=== PATIENT | male | born 1940 | race Caucasian/White ===

== ENCOUNTER 2022-11-02 20:15 | Inpatient (IN) | payer OTHER, SELFPAY ==
[2022-11-02] MEDS: traZODone HCL 50 MG TABLET PO (21:48)
[2022-11-02] MEDS: Mirtazapine 7.5 MG TABLET PO (21:49)
[2022-11-02] MEDS: Melatonin 3 MG TABLET PO (21:49)
[2022-11-02] MEDS: risperiDONE 0.25 MG TABLET PO (21:49)
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
[2022-11-02 23:25] VITALS: BP 148/79; PULSE 78; RESP 17; TEMP 36.8; O2SAT 99
[2022-11-03 07:30] VITALS: BP 177/80; PULSE 89; RESP 18; TEMP 36.3; O2SAT 95
[2022-11-03 08:46] LABS: Estimated Average Glucose 123 mg/dL; Hemoglobin A1C 140.4859 umol/L; Hemoglobin A1c % 5.9 %
[2022-11-03 08:50] LABS: Cholesterol 235 mg/dL; Estimated Glomerular Filt Rate 25; HDL Cholesterol 77 mg/dL; LDL Cholesterol Calculated 147 mg/dl; Magnesium 2.5 mg/dL (1.6-2.6); Triglycerides 58 mg/dL
[2022-11-03] MEDS: Cyanocobalamin (Vitamin B-12) 1,000 MCG TABLET 1000 MCG PO (08:54)
[2022-11-03] MEDS: Apixaban 5 MG TABLET PO (08:54)
[2022-11-03] MEDS: risperiDONE 0.25 MG TABLET PO ×2 (08:54→19:57)
[2022-11-03] MEDS: Cholecalciferol (Vitamin D3) 25 MCG TABLET PO (08:54)
[2022-11-03] MEDS: amLODIPine Besylate 5 MG TABLET PO (08:55)
[2022-11-03] MEDS: Sennosides/Docusate Sodium TABLET 1 TAB PO (08:55)
[2022-11-03 09:53] LABS: Folate 12.2 ng/mL (> or = 4.0); Free T4 (Free Thyroxine) 1.01 ng/dL (0.71-1.85); Thyroid Stimulating Hormone 2.73 uIU/mL (0.32-4.0); Vitamin B12 > 2000 pg/mL (200-900)
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
[2022-11-03 11:40] VITALS: BMI 24.8
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
--- NOTE | 2022-11-03 16:29 | PC.NURSE ---
Patient evaluated 24 hour post admission. Found to be ambulating with steady gait and good balance/safety awareness. Patient able to be on 15 minute checks and no bed alarm.
--- NOTE | 2022-11-03 16:31 | PC.NURSE ---
Patient now 12b per provider.
[2022-11-03 18:00] VITALS: BP 136/67; PULSE 78; RESP 16; TEMP 35.7; O2SAT 98
[2022-11-03] MEDS: Apixaban 2.5 MG TABLET PO (19:57)
[2022-11-03] MEDS: Melatonin 3 MG TABLET PO (19:57)
[2022-11-03] MEDS: Divalproex Sodium Sprinkles 125 MG CAP.DR.SPR PO (19:57)
[2022-11-03] MEDS: Mirtazapine 7.5 MG TABLET PO (19:57)
[2022-11-03] MEDS: Latanoprost 0.005 % Ophth Sol 2.5 ML DROPS 1 DROP EYE-BOTH (19:58)
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
[2022-11-04 07:30] VITALS: BP 143/90; PULSE 84; RESP 20; TEMP 36.3; O2SAT 96
[2022-11-04] MEDS: Divalproex Sodium Sprinkles 125 MG CAP.DR.SPR PO ×2 (08:14→20:48)
[2022-11-04] MEDS: Apixaban 2.5 MG TABLET PO ×2 (08:14→20:48)
[2022-11-04] MEDS: Cyanocobalamin (Vitamin B-12) 1,000 MCG TABLET 1000 MCG PO (08:14)
[2022-11-04] MEDS: Cholecalciferol (Vitamin D3) 25 MCG TABLET PO (08:14)
[2022-11-04] MEDS: risperiDONE 0.25 MG TABLET PO ×2 (08:14→20:48)
[2022-11-04] MEDS: Sennosides/Docusate Sodium TABLET 1 TAB PO (08:14)
[2022-11-04] MEDS: amLODIPine Besylate 5 MG TABLET PO (08:15)
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
[2022-11-04 18:00] VITALS: BP 159/62; PULSE 84; RESP 17; TEMP 36.3; O2SAT 99
[2022-11-04] MEDS: Melatonin 3 MG TABLET PO (20:48)
[2022-11-04] MEDS: Mirtazapine 7.5 MG TABLET PO (20:48)
[2022-11-04] MEDS: Latanoprost 0.005 % Ophth Sol 2.5 ML DROPS 1 DROP EYE-BOTH (20:49)
[2022-11-05 06:00] VITALS: BP 142/83; PULSE 105; RESP 18; TEMP 36.8; O2SAT 98
[2022-11-05] MEDS: Cyanocobalamin (Vitamin B-12) 1,000 MCG TABLET 1000 MCG PO (10:50)
[2022-11-05] MEDS: amLODIPine Besylate 5 MG TABLET PO (10:50)
[2022-11-05] MEDS: Sennosides/Docusate Sodium TABLET 1 TAB PO (10:50)
[2022-11-05] MEDS: Divalproex Sodium Sprinkles 125 MG CAP.DR.SPR PO ×2 (10:50→19:51)
[2022-11-05] MEDS: risperiDONE 0.25 MG TABLET PO ×2 (10:50→19:51)
[2022-11-05] MEDS: Cholecalciferol (Vitamin D3) 25 MCG TABLET PO (10:50)
[2022-11-05] MEDS: Apixaban 2.5 MG TABLET PO ×2 (10:50→19:50)
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
[2022-11-05 18:00] VITALS: BP 162/86; PULSE 80; RESP 18; TEMP 36.1; O2SAT 100
[2022-11-05] MEDS: Melatonin 3 MG TABLET PO (19:51)
[2022-11-05] MEDS: traZODone HCL 50 MG TABLET PO (19:51)
[2022-11-05] MEDS: Mirtazapine 7.5 MG TABLET PO (19:52)
[2022-11-05] MEDS: Latanoprost 0.005 % Ophth Sol 2.5 ML DROPS 1 DROP EYE-BOTH (19:54)
[2022-11-06 08:00] VITALS: BP 145/80; PULSE 100; RESP 16; TEMP 36.7; O2SAT 100
[2022-11-06] MEDS: Cyanocobalamin (Vitamin B-12) 1,000 MCG TABLET 1000 MCG PO (08:49)
[2022-11-06] MEDS: Cholecalciferol (Vitamin D3) 25 MCG TABLET PO (08:49)
[2022-11-06] MEDS: Divalproex Sodium Sprinkles 125 MG CAP.DR.SPR PO ×2 (08:49→20:35)
[2022-11-06] MEDS: Apixaban 2.5 MG TABLET PO ×2 (08:50→20:35)
[2022-11-06] MEDS: risperiDONE 0.25 MG TABLET PO (08:50)
[2022-11-06] MEDS: Sennosides/Docusate Sodium TABLET 1 TAB PO (08:50)
[2022-11-06] MEDS: amLODIPine Besylate 5 MG TABLET PO (08:50)
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
[2022-11-06] MEDS: risperiDONE 0.25 MG TABLET 0.5 MG PO (17:03)
[2022-11-06 18:00] VITALS: BP 167/64; PULSE 99; RESP 17; TEMP 36.1; O2SAT 98
[2022-11-06] MEDS: Milk of Magnesia 30 ML ORAL.SUSP PO (20:35)
[2022-11-06] MEDS: traZODone HCL 50 MG TABLET PO (20:35)
[2022-11-06] MEDS: Melatonin 3 MG TABLET PO (20:35)
[2022-11-06] MEDS: Mirtazapine 7.5 MG TABLET PO (20:35)
[2022-11-07 07:30] VITALS: BP 144/86; PULSE 83; RESP 16; TEMP 36.3; O2SAT 99
[2022-11-07] MEDS: amLODIPine Besylate 5 MG TABLET PO (08:13)
[2022-11-07] MEDS: Cholecalciferol (Vitamin D3) 25 MCG TABLET PO (08:14)
[2022-11-07] MEDS: Sennosides/Docusate Sodium TABLET 1 TAB PO ×2 (08:14→20:46)
[2022-11-07] MEDS: Divalproex Sodium Sprinkles 125 MG CAP.DR.SPR PO ×2 (08:14→20:46)
[2022-11-07] MEDS: Cyanocobalamin (Vitamin B-12) 1,000 MCG TABLET 1000 MCG PO (08:14)
[2022-11-07] MEDS: Apixaban 2.5 MG TABLET PO ×2 (08:14→20:46)
[2022-11-07] MEDS: risperiDONE 0.25 MG TABLET 0.5 MG PO ×2 (08:14→16:26)
[2022-11-07 08:21] LABS: Basophils Percent Auto 0.4 % (0-2); Eosinophils Absolute Auto 0.3 X10*3/uL (0.0-0.4); Eosinophils Percent Auto 6.3 % (0-4); Hematocrit 43.8 % (42.0-52.0); Hemoglobin 13.9 g/dl (14.0-18.0); Imm Gran Abs Auto 0.01 X10*3/uL (0.00-0.03); Imm Gran Pct Auto 0.2 % (0.0-0.4); Lymphocytes Absolute Auto 1.1 X10*3/uL (1.2-4.9); Lymphocytes Percent Auto 22.1 % (20-40); MANUAL DIFF FLAG SCAN; Mean Corpuscular HGB Conc 31.7 g/dl (31.0-36.0); Mean Corpuscular Hemoglobin 29.2 pg (27.0-33.0); Monocytes Absolute Auto 0.5 X10*3/uL (0.1-1.2); Monocytes Percent Auto 9.4 % (2-11); Neutrophils Percent Auto 61.6 % (45-73); PLT CLUMP 1; Red Blood Count 4.76 X10*6/uL (4.60-5.80); Red Cell Distribution Width 14.1 % (11.0-16.0); SCAN SMEAR FLAG 1
[2022-11-07 08:22] LABS: White Blood Count 4.9 X10*3/uL (4.8-10.8)
[2022-11-07 08:53] LABS: Platelet Count 142 X10*3/uL (160-400)
[2022-11-07 08:54] LABS: Anion Gap 17 (12-20); Blood Urea Nitrogen 39 mg/dL (9-16); Calcium 8.8 mg/dL (8.4-10.2); Carbon Dioxide 16 mmol/L (22-29); Chloride 113 mmol/L (96-108); Estimated Glomerular Filt Rate 26; Glucose Random 107 mg/dL (60-115); Potassium 4.7 mmol/L (3.3-5.1); SLIDE REVIEW VERIFIED; Sodium 141 mmol/L (135-145)
[2022-11-07 09:03] LABS: Thyroid Stimulating Hormone 1.79 uIU/mL (0.32-4.0)
[2022-11-07 09:06] LABS: Ammonia 38 umol/L (13-55)
[2022-11-07] MEDS: Milk of Magnesia 30 ML ORAL.SUSP PO (11:26)
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
[2022-11-07 18:00] VITALS: BP 154/84; PULSE 105; RESP 18; TEMP 36; O2SAT 99
[2022-11-07] MEDS: traZODone HCL 50 MG TABLET PO (20:46)
[2022-11-07] MEDS: Melatonin 3 MG TABLET PO (20:46)
[2022-11-07] MEDS: Mirtazapine 7.5 MG TABLET PO (20:46)
[2022-11-08] MEDS: Divalproex Sodium Sprinkles 125 MG CAP.DR.SPR PO ×2 (09:33→20:37)
[2022-11-08] MEDS: Cyanocobalamin (Vitamin B-12) 1,000 MCG TABLET 1000 MCG PO (09:33)
[2022-11-08] MEDS: Apixaban 2.5 MG TABLET PO ×2 (09:33→20:37)
[2022-11-08] MEDS: Cholecalciferol (Vitamin D3) 25 MCG TABLET PO (09:33)
[2022-11-08] MEDS: amLODIPine Besylate 5 MG TABLET PO (09:33)
[2022-11-08] MEDS: risperiDONE 0.5 MG TABLET PO ×2 (09:34→16:41)
[2022-11-08 09:41] VITALS: BP 157/90; PULSE 87; RESP 18; TEMP 36.2; O2SAT 98
[2022-11-08 14:18] VITALS: BMI 25.1
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
[2022-11-08 18:00] VITALS: BP 170/80; PULSE 110; RESP 17; TEMP 36.2; O2SAT 98
[2022-11-08] MEDS: traZODone HCL 50 MG TABLET PO (20:37)
[2022-11-08] MEDS: Melatonin 3 MG TABLET PO (20:37)
[2022-11-08] MEDS: Mirtazapine 7.5 MG TABLET PO (20:37)
[2022-11-08] MEDS: Latanoprost 0.005 % Ophth Sol 2.5 ML DROPS 1 DROP EYE-BOTH (20:39)
[2022-11-09 08:15] VITALS: BP 157/84; PULSE 77; RESP 16; TEMP 36.6; O2SAT 98
[2022-11-09] MEDS: risperiDONE 0.5 MG TABLET PO ×2 (08:29→17:16)
[2022-11-09] MEDS: amLODIPine Besylate 5 MG TABLET PO (08:29)
[2022-11-09] MEDS: Cholecalciferol (Vitamin D3) 25 MCG TABLET PO (08:30)
[2022-11-09] MEDS: Cyanocobalamin (Vitamin B-12) 1,000 MCG TABLET 1000 MCG PO (08:30)
[2022-11-09] MEDS: Divalproex Sodium Sprinkles 125 MG CAP.DR.SPR PO ×2 (08:30→19:54)
[2022-11-09] MEDS: Apixaban 2.5 MG TABLET PO ×2 (08:31→19:54)
[2022-11-09] MEDS: Sennosides/Docusate Sodium TABLET 1 TAB PO (08:31)
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
[2022-11-09 18:00] VITALS: BP 154/82; PULSE 100; RESP 18; TEMP 36.3; O2SAT 98
[2022-11-09] MEDS: Mirtazapine 7.5 MG TABLET PO (19:53)
[2022-11-09] MEDS: Melatonin 3 MG TABLET PO (19:54)
[2022-11-09] MEDS: Latanoprost 0.005 % Ophth Sol 2.5 ML DROPS 1 DROP EYE-BOTH (19:55)
[2022-11-10] MEDS: risperiDONE 0.5 MG TABLET PO ×2 (10:06→16:35)
[2022-11-10] MEDS: Cholecalciferol (Vitamin D3) 25 MCG TABLET PO (10:06)
[2022-11-10] MEDS: Divalproex Sodium Sprinkles 125 MG CAP.DR.SPR PO ×2 (10:06→19:48)
[2022-11-10] MEDS: Cyanocobalamin (Vitamin B-12) 1,000 MCG TABLET 1000 MCG PO (10:07)
[2022-11-10] MEDS: Sennosides/Docusate Sodium TABLET 1 TAB PO (10:07)
[2022-11-10] MEDS: amLODIPine Besylate 5 MG TABLET PO (10:07)
[2022-11-10] MEDS: Apixaban 2.5 MG TABLET PO ×2 (10:07→19:50)
[2022-11-10 10:09] VITALS: BP 145/85; PULSE 88; RESP 18; TEMP 36.4; O2SAT 96
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
[2022-11-10 18:00] VITALS: BP 157/91; PULSE 86; RESP 18; TEMP 36.4; O2SAT 98
[2022-11-10] MEDS: Mirtazapine 7.5 MG TABLET PO (19:49)
[2022-11-10] MEDS: traZODone HCL 50 MG TABLET PO (19:50)
[2022-11-10] MEDS: Melatonin 3 MG TABLET PO (19:50)
[2022-11-10] MEDS: Latanoprost 0.005 % Ophth Sol 2.5 ML DROPS 1 DROP EYE-BOTH (19:52)
[2022-11-11 06:00] VITALS: BP 150/78; PULSE 78; TEMP 36.7; O2SAT 98
[2022-11-11] MEDS: Cholecalciferol (Vitamin D3) 25 MCG TABLET PO (08:36)
[2022-11-11] MEDS: risperiDONE 0.5 MG TABLET PO ×2 (08:36→17:03)
[2022-11-11] MEDS: Sennosides/Docusate Sodium TABLET 1 TAB PO (08:36)
[2022-11-11] MEDS: amLODIPine Besylate 5 MG TABLET PO (08:36)
[2022-11-11] MEDS: Divalproex Sodium Sprinkles 125 MG CAP.DR.SPR PO ×2 (08:36→21:00)
[2022-11-11] MEDS: Apixaban 2.5 MG TABLET PO ×2 (08:37→21:00)
[2022-11-11] MEDS: Cyanocobalamin (Vitamin B-12) 1,000 MCG TABLET 1000 MCG PO (08:37)
[2022-11-11 18:00] VITALS: BP 157/84; PULSE 89; RESP 18; TEMP 36.7; O2SAT 98
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
[2022-11-11] MEDS: Latanoprost 0.005 % Ophth Sol 2.5 ML DROPS 1 DROP EYE-BOTH (20:59)
[2022-11-11] MEDS: Melatonin 3 MG TABLET PO (21:00)
[2022-11-11] MEDS: Mirtazapine 7.5 MG TABLET PO (21:00)
[2022-11-12 10:40] VITALS: BP 143/84; PULSE 86; RESP 18; TEMP 36.3; O2SAT 99
[2022-11-12] MEDS: Apixaban 2.5 MG TABLET PO ×2 (10:45→20:13)
[2022-11-12] MEDS: Cholecalciferol (Vitamin D3) 25 MCG TABLET PO (10:46)
[2022-11-12] MEDS: Divalproex Sodium Sprinkles 125 MG CAP.DR.SPR PO ×2 (10:46→20:13)
[2022-11-12] MEDS: amLODIPine Besylate 5 MG TABLET PO (10:46)
[2022-11-12] MEDS: Cyanocobalamin (Vitamin B-12) 1,000 MCG TABLET 1000 MCG PO (10:46)
[2022-11-12] MEDS: risperiDONE 0.5 MG TABLET PO ×2 (10:47→17:08)
[2022-11-12] MEDS: Sennosides/Docusate Sodium TABLET 1 TAB PO (10:47)
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
[2022-11-12 19:57] VITALS: BP 156/89; PULSE 79; RESP 18; TEMP 36; O2SAT 97
[2022-11-12] MEDS: Melatonin 3 MG TABLET PO (20:13)
[2022-11-12] MEDS: Mirtazapine 7.5 MG TABLET PO (20:13)
[2022-11-12] MEDS: Latanoprost 0.005 % Ophth Sol 2.5 ML DROPS 1 DROP EYE-BOTH (20:13)
[2022-11-13 06:00] VITALS: BP 153/83; PULSE 86; RESP 16; TEMP 36.2; O2SAT 97
[2022-11-13] MEDS: Cholecalciferol (Vitamin D3) 25 MCG TABLET PO (08:08)
[2022-11-13] MEDS: Divalproex Sodium Sprinkles 125 MG CAP.DR.SPR PO ×2 (08:08→22:08)
[2022-11-13] MEDS: amLODIPine Besylate 5 MG TABLET PO (08:08)
[2022-11-13] MEDS: Sennosides/Docusate Sodium TABLET 1 TAB PO (08:09)
[2022-11-13] MEDS: risperiDONE 0.5 MG TABLET PO ×2 (08:09→17:36)
[2022-11-13] MEDS: Apixaban 2.5 MG TABLET PO ×2 (08:09→20:34)
[2022-11-13] MEDS: Cyanocobalamin (Vitamin B-12) 1,000 MCG TABLET 1000 MCG PO (08:09)
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
[2022-11-13 18:00] VITALS: BP 153/87; PULSE 74; RESP 16; TEMP 36.9; O2SAT 98
[2022-11-13] MEDS: Melatonin 3 MG TABLET PO (20:33)
[2022-11-13] MEDS: Latanoprost 0.005 % Ophth Sol 2.5 ML DROPS 1 DROP EYE-BOTH (20:33)
[2022-11-13] MEDS: Mirtazapine 7.5 MG TABLET PO (20:34)
[2022-11-13] MEDS: Mineral Oil/Petrolatum,White 106 GM Tube 1 APPL TOPICAL (20:36)
[2022-11-14 06:00] VITALS: BP 153/97; PULSE 84; RESP 16; TEMP 36.1; O2SAT 100
[2022-11-14] MEDS: Cholecalciferol (Vitamin D3) 25 MCG TABLET PO (08:50)
[2022-11-14] MEDS: Sennosides/Docusate Sodium TABLET 1 TAB PO (08:50)
[2022-11-14] MEDS: Divalproex Sodium Sprinkles 125 MG CAP.DR.SPR PO ×2 (08:50→20:48)
[2022-11-14] MEDS: risperiDONE 0.5 MG TABLET PO ×2 (08:50→17:07)
[2022-11-14] MEDS: Cyanocobalamin (Vitamin B-12) 1,000 MCG TABLET 1000 MCG PO (08:50)
[2022-11-14] MEDS: Mineral Oil/Petrolatum,White 106 GM Tube 1 APPL TOPICAL (08:51)
[2022-11-14] MEDS: Apixaban 2.5 MG TABLET PO ×2 (08:51→20:49)
[2022-11-14] MEDS: amLODIPine Besylate 5 MG TABLET PO (08:51)
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
[2022-11-14 18:00] VITALS: BP 156/90; PULSE 84; RESP 14; TEMP 35.9; O2SAT 99
[2022-11-14] MEDS: Melatonin 3 MG TABLET PO (20:48)
[2022-11-14] MEDS: Mirtazapine 7.5 MG TABLET PO (20:49)
[2022-11-14] MEDS: Latanoprost 0.005 % Ophth Sol 2.5 ML DROPS 1 DROP EYE-BOTH (20:53)
[2022-11-15 06:00] VITALS: BP 132/74; PULSE 95; RESP 16; TEMP 36.2; O2SAT 99
[2022-11-15 07:00] VITALS: BMI 25.5
[2022-11-15] MEDS: Cyanocobalamin (Vitamin B-12) 1,000 MCG TABLET 1000 MCG PO (08:41)
[2022-11-15] MEDS: risperiDONE 0.5 MG TABLET PO ×2 (08:41→17:01)
[2022-11-15] MEDS: Cholecalciferol (Vitamin D3) 25 MCG TABLET PO (08:41)
[2022-11-15] MEDS: Sennosides/Docusate Sodium TABLET 1 TAB PO (08:41)
[2022-11-15] MEDS: amLODIPine Besylate 5 MG TABLET PO (08:41)
[2022-11-15] MEDS: Divalproex Sodium Sprinkles 125 MG CAP.DR.SPR PO ×2 (08:41→20:15)
[2022-11-15] MEDS: Mineral Oil/Petrolatum,White 106 GM Tube 1 APPL TOPICAL (08:41)
[2022-11-15] MEDS: Apixaban 2.5 MG TABLET PO ×2 (08:41→20:15)
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
[2022-11-15 16:34] VITALS: BP 158/86; PULSE 76; RESP 16; TEMP 36.2; O2SAT 97
[2022-11-15] MEDS: Mirtazapine 7.5 MG TABLET PO (20:15)
[2022-11-15] MEDS: Melatonin 3 MG TABLET PO (20:15)
[2022-11-15] MEDS: Latanoprost 0.005 % Ophth Sol 2.5 ML DROPS 1 DROP EYE-BOTH (20:16)
[2022-11-16 06:00] VITALS: BP 163/91; PULSE 73; RESP 18; TEMP 36.8; O2SAT 96
[2022-11-16] MEDS: Cyanocobalamin (Vitamin B-12) 1,000 MCG TABLET 1000 MCG PO (09:51)
[2022-11-16] MEDS: amLODIPine Besylate 5 MG TABLET PO (09:51)
[2022-11-16] MEDS: risperiDONE 0.5 MG TABLET PO ×2 (09:52→16:02)
[2022-11-16] MEDS: Apixaban 2.5 MG TABLET PO ×2 (09:52→20:20)
[2022-11-16] MEDS: Divalproex Sodium Sprinkles 125 MG CAP.DR.SPR PO ×2 (09:52→20:20)
[2022-11-16] MEDS: Sennosides/Docusate Sodium TABLET 1 TAB PO (09:52)
[2022-11-16] MEDS: Cholecalciferol (Vitamin D3) 25 MCG TABLET PO (09:52)
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
[2022-11-16 18:00] VITALS: BP 140/63; PULSE 67; RESP 16; TEMP 36.7; O2SAT 97
[2022-11-16] MEDS: Melatonin 3 MG TABLET PO (20:20)
[2022-11-16] MEDS: Mirtazapine 7.5 MG TABLET PO (20:20)
[2022-11-16] MEDS: Latanoprost 0.005 % Ophth Sol 2.5 ML DROPS 1 DROP EYE-BOTH (20:33)
[2022-11-16] MEDS: Mineral Oil/Petrolatum,White 106 GM Tube 1 APPL TOPICAL (20:34)
[2022-11-16] MEDS: Acetaminophen 325 MG TABLET 650 MG PO (21:02)
[2022-11-17] MEDS: traZODone HCL 50 MG TABLET PO (02:12)
[2022-11-17] MEDS: Acetaminophen 325 MG TABLET 650 MG PO (02:12)
--- NOTE | 2022-11-17 03:14 | PC.NURSE ---
MD Saavedra notified and a picture sent of wound on bottom of L foot. said he would' place an order for hospitalist consult' and it 'does not look infected.''
[2022-11-17] MEDS: Sennosides/Docusate Sodium TABLET 1 TAB PO (08:05)
[2022-11-17] MEDS: Cyanocobalamin (Vitamin B-12) 1,000 MCG TABLET 1000 MCG PO (08:05)
[2022-11-17] MEDS: amLODIPine Besylate 5 MG TABLET PO (08:05)
[2022-11-17] MEDS: Apixaban 2.5 MG TABLET PO ×2 (08:06→20:09)
[2022-11-17] MEDS: Divalproex Sodium Sprinkles 125 MG CAP.DR.SPR PO ×2 (08:06→20:09)
[2022-11-17] MEDS: Cholecalciferol (Vitamin D3) 25 MCG TABLET PO (08:06)
[2022-11-17] MEDS: risperiDONE 0.5 MG TABLET PO ×2 (08:06→16:45)
[2022-11-17 08:10] VITALS: BP 179/89; PULSE 71; RESP 16; TEMP 36.6; O2SAT 99
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
--- NOTE | 2022-11-17 16:59 | P.EN_ITS ---
Event Note Date of Service: 11/17/22 Event Note: Pt seen and evaluated for a lesion on the ball of his left foot, as pictured below. Pt denies the lesion is painful but bothers him when he walks. Patient states that he has had this callus for a very long time, but would like to have it removed. Lesion is not tender to palpation and there are no signs of infection: No erythema, discharge, swelling. Patient is not a diabetic. Patient is advised to follow-up with podiatry outpatient upon discharge as we do not have podiatry services available inpatient. Alternatively, pt could wear cushioned footware to make him more comfortable. Thank you for allowing us to participate in the care of this patient. Signing off at this time. Please let us know if there are any acute complaints or ques tions. Time Spent With Patient Time: Total time managing care of this patient today ____ minutes.
[2022-11-17 18:00] VITALS: BP 130/61; PULSE 72; RESP 18; TEMP 36; O2SAT 99
[2022-11-17] MEDS: Latanoprost 0.005 % Ophth Sol 2.5 ML DROPS 1 DROP EYE-BOTH (20:09)
[2022-11-17] MEDS: Mirtazapine 7.5 MG TABLET PO (20:09)
[2022-11-17] MEDS: Melatonin 3 MG TABLET PO (20:09)
[2022-11-17] MEDS: Mineral Oil/Petrolatum,White 106 GM Tube 1 APPL TOPICAL (20:45)
[2022-11-18 08:00] VITALS: BP 150/89; PULSE 69; RESP 16; TEMP 36.6; O2SAT 95
[2022-11-18] MEDS: Sennosides/Docusate Sodium TABLET 1 TAB PO (08:03)
[2022-11-18] MEDS: Divalproex Sodium Sprinkles 125 MG CAP.DR.SPR PO ×2 (08:03→19:50)
[2022-11-18] MEDS: amLODIPine Besylate 5 MG TABLET PO (08:03)
[2022-11-18] MEDS: Cyanocobalamin (Vitamin B-12) 1,000 MCG TABLET 1000 MCG PO (08:03)
[2022-11-18] MEDS: risperiDONE 0.5 MG TABLET PO ×2 (08:03→16:30)
[2022-11-18] MEDS: Cholecalciferol (Vitamin D3) 25 MCG TABLET PO (08:03)
[2022-11-18] MEDS: Apixaban 2.5 MG TABLET PO ×2 (08:03→19:49)
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
[2022-11-18 18:00] VITALS: BP 140/78; PULSE 73; RESP 73; TEMP 36.3; O2SAT 95
[2022-11-18] MEDS: Melatonin 3 MG TABLET PO (19:49)
[2022-11-18] MEDS: Mirtazapine 7.5 MG TABLET PO (19:50)
[2022-11-18] MEDS: Latanoprost 0.005 % Ophth Sol 2.5 ML DROPS 1 DROP EYE-BOTH (19:51)
[2022-11-18] MEDS: Mineral Oil/Petrolatum,White 106 GM Tube 1 APPL TOPICAL (19:52)
[2022-11-19 08:10] VITALS: BP 150/80; PULSE 88; RESP 18; TEMP 36.2; O2SAT 98
[2022-11-19] MEDS: Divalproex Sodium Sprinkles 125 MG CAP.DR.SPR PO (08:53)
[2022-11-19] MEDS: Sennosides/Docusate Sodium TABLET 1 TAB PO (08:53)
[2022-11-19] MEDS: amLODIPine Besylate 5 MG TABLET PO (08:53)
[2022-11-19] MEDS: risperiDONE 0.5 MG TABLET PO (08:53)
[2022-11-19] MEDS: Apixaban 2.5 MG TABLET PO (08:53)
[2022-11-19] MEDS: Cholecalciferol (Vitamin D3) 25 MCG TABLET PO (08:53)
[2022-11-19] MEDS: Cyanocobalamin (Vitamin B-12) 1,000 MCG TABLET 1000 MCG PO (08:54)
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
== END 2022-11-19 11:14 | disposition home or self-care (01) | DRG 882 ==
PROVIDERS: Clinical Nurse Specialist Psychiatric/Mental Health, Adult; Admitting Provider Psychiatry & Neurology Psychiatry; PCP Internal Medicine; Visit Provider Psychiatry & Neurology Psychiatry
DX: F43.10 Post-traumatic stress disorder, unspecified (principal); F03.911 Unspecified dementia, unspecified severity, with agitation; I13.0 Hypertensive heart and chronic kidney disease with heart failure and stage 1 through stage 4 chronic kidney disease, or unspecified chronic kidney disease; I50.32 Chronic diastolic (congestive) heart failure; N18.30 Chronic kidney disease, stage 3 unspecified; E78.5 Hyperlipidemia, unspecified; G89.29 Other chronic pain; M79.672 Pain in left foot; Z86.711 Personal history of pulmonary embolism; Z88.8 Allergy status to other drugs, medicaments and biological substances; Z79.01 Long term (current) use of anticoagulants; Z79.899 Other long term (current) drug therapy
CPT/HCPCS: 36415; 80048; 80061; 82140; 82565; 82607; 82746; 83036; 83735; 84439; 84443; 85025

== ENCOUNTER 2024-01-15 14:52 | Emergency (ER) | payer OTHER, SELFPAY ==
[2024-01-15 15:03] VITALS: BP 171/97; PULSE 73; RESP 20; TEMP 36.6; O2SAT 98; BMI 33.9
[2024-01-15 16:53] LABS: MANUAL DIFF FLAG NO
[2024-01-15 16:58] LABS: Appearance Urine Clear; Color Urine Yellow; Glucose Urine UA Negative (Negative); Leukocyte Esterase Urine Negative (Negative); Nitrite Urine Negative (Negative); PH 5.5 (5.0-9.0); Specific Gravity - Urine 1.015 (1.005-1.025); UMIC TRIGGER UA YES; Urine Blood Trace (Negative); Urine Ketones Negative (Negative); Urine Protein Trace mg/dL (Neg-Trace)
[2024-01-15 16:58] LABS: Basophils Percent Auto 0.2 % (0-2); Eosinophils Absolute Auto 0.2 X10*3/uL (0.0-0.4); Eosinophils Percent Auto 4.1 % (0-4); Hematocrit 42.3 % (42.0-52.0); Hemoglobin 13.7 g/dl (14.0-18.0); Imm Gran Abs Auto 0.01 X10*3/uL (0.00-0.03); Imm Gran Pct Auto 0.2 % (0.0-0.4); Lymphocytes Absolute Auto 0.9 X10*3/uL (1.2-4.9); Lymphocytes Percent Auto 17.1 % (20-40); Mean Corpuscular HGB Conc 32.4 g/dl (31.0-36.0); Mean Corpuscular Hemoglobin 30.4 pg (27.0-33.0); Mean Platelet Volume 10.2 fL (9.4-12.4); Monocytes Absolute Auto 0.3 X10*3/uL (0.1-1.2); Monocytes Percent Auto 6.7 % (2-11); Neutrophils Absolute Auto 3.7 x10*3/uL (2.0-8.3); Neutrophils Percent Auto 71.7 % (45-73); Platelet Count 132 X10*3/uL (160-400); Red Cell Distribution Width 14.1 % (11.0-16.0); White Blood Count 5.1 X10*3/uL (4.8-10.8)
[2024-01-15 17:03] LABS: Bacteria Urine None Seen (None Seen); Hyaline Casts Urine 0-2 /LPF (0-2); Squamous Epithelial Cell Urine 0-2 /HPF (0-2); WBC Urine 0-5 /HPF (0-5)
[2024-01-15 17:06] LABS: RBC Urine 0-2 /HPF (0-2)
--- NOTE | 2024-01-15 17:12 | PC.NURSE ---
patient changed into hospital attire with security. in pod locker 11
[2024-01-15 17:13] LABS: Acetaminophen LAB < 3 mcg/mL (<30); Salicylate < 5.0 mg/dL (15-30)
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
[2024-01-15 17:14] LABS: Alanine Aminotransferase 27 U/L (0-40); Albumin Level 3.8 g/dL (3.5-5.0); Alkaline Phosphatase 100 U/L (39-117); Anion Gap 14 (12-20); Aspartate Amino Transferase 20 U/L (5-37); Bilirubin Total 0.3 mg/dL (0.0-1.0); Blood Urea Nitrogen 24 mg/dL (9-16); Calcium 8.7 mg/dL (8.4-10.2); Carbon Dioxide 21 mmol/L (22-29); Chloride 109 mmol/L (96-108); Creatinine Clr Calc Pharmacy 35.8; Estimated Glomerular Filt Rate 30; Ethanol < 10 mg/dL; Glucose Random 154 mg/dL (60-115); Potassium 4.6 mmol/L (3.3-5.1); Sodium 139 mmol/L (135-145); Total Protein 7.2 g/dL (6.5-8.0)
[2024-01-15 17:17] LABS: Amphetamine Screen Urine Not Detected (Not Detect); Barbiturates, Urine Not Detected (Not Detect); Benzodiazepines Screen Urine Not Detected (Not Detect); Buprenorphine Scr Not Detected (Not Detect); Cannabinoid Screen Urine Not Detected (Not Detect); Cocaine Screen Urine Not Detected (Not Detect); Fentanyl, urine Not Detected (Not Detect); Methadone Screen, Urine Not Detected (Not Detect); Opiate Screen Urine Not Detected (Not Detect); Oxycodone Screen Urine Not Detected (Not Detect); Phencyclidine Screen Urine Not Detected (Not Detect)
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
[2024-01-15 19:28] VITALS: BP 170/84; PULSE 66; RESP 17; TEMP 36.7; O2SAT 99
[2024-01-15 21:02] VITALS: BP 178/103; PULSE 74; RESP 18; TEMP 36.6; O2SAT 98
--- NOTE | 2024-01-15 22:29 | PHA.MEDREC ---
Pharmacy Consult ? Medication Reconciliation Pharmacy has completed the medication reconciliation. Confirmed meds with list provided by nursing [facility].
--- NOTE | 2024-01-15 22:46 | PC.NURSE ---
pt currently asleep, if wakes, will administer the melatonin and trazadone .
[2024-01-15] MEDS: traZODone HCL 50 MG TABLET PO (22:56)
[2024-01-15] MEDS: Melatonin 3 MG TABLET 6 MG PO (22:56)
[2024-01-16 05:24] VITALS: BP 160/84; PULSE 60; RESP 17; TEMP 36.7; O2SAT 98
--- NOTE | 2024-01-16 08:00 | PC.NURSE ---
pt is currently eating breakfast in no apparent distress at this time, sitter at bedside
[2024-01-16 09:46] VITALS: BP 160/84; PULSE 60; O2SAT 98
[2024-01-16 10:15] VITALS: BP 164/80
[2024-01-16] MEDS: Apixaban 2.5 MG TABLET PO ×2 (10:15→21:17)
[2024-01-16] MEDS: Cholecalciferol (Vitamin D3) 25 MCG TABLET PO (10:15)
[2024-01-16] MEDS: Sennosides/Docusate Sodium TABLET 1 TAB PO (10:15)
[2024-01-16] MEDS: Cyanocobalamin (Vitamin B-12) 1,000 MCG TABLET 1000 MCG PO (10:15)
[2024-01-16] MEDS: amLODIPine Besylate 5 MG TABLET PO (10:15)
[2024-01-16 10:46] LABS: IDNOW Serial# 152EDE1D
[2024-01-16 10:47] LABS: COVID-19 Test Negative (Negative)
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
--- NOTE | 2024-01-16 14:39 | PC.NURSE ---
Patient is ambulating around BH pod with steady gait, offering no complaints to this RN. 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 Pastor Silvestre did stop by to say rae as well earlier this am. Patient aware of plan of care for case management follow up
--- NOTE | 2024-01-16 17:43 | PC.NURSE ---
Patient appears to be sleeping, respirations even and unlabored, no apparent distress noted
[2024-01-16] MEDS: Melatonin 3 MG TABLET 6 MG PO (21:16)
[2024-01-16] MEDS: traZODone HCL 50 MG TABLET PO (21:16)
[2024-01-16 22:21] VITALS: BP 178/104; BP 185/101; PULSE 89; RESP 18; TEMP 36.6; O2SAT 97
[2024-01-17 02:41] VITALS: BP 182/95; PULSE 91; RESP 17; TEMP 36.9; O2SAT 100
--- NOTE | 2024-01-17 06:54 | PC.NURSE ---
Assumed care of patient at 0645, patient appears to be sleeping, respirations even and unlabored, no apparent distress noted. Continue plan of care for case management follow up
[2024-01-17 08:20] VITALS: BP 148/79; PULSE 86; RESP 16; TEMP 36.2; O2SAT 96
[2024-01-17 08:28] VITALS: BP 148/79; PULSE 86
[2024-01-17] MEDS: Metoprolol Tartrate 25 MG TABLET PO ×2 (08:28→20:16)
[2024-01-17] MEDS: Apixaban 5 MG TABLET PO ×2 (08:28→20:17)
[2024-01-17] MEDS: Cholecalciferol (Vitamin D3) 25 MCG TABLET PO (08:28)
[2024-01-17] MEDS: Cyanocobalamin (Vitamin B-12) 1,000 MCG TABLET 1000 MCG PO (08:28)
[2024-01-17] MEDS: Sennosides/Docusate Sodium TABLET 1 TAB PO ×2 (08:28→20:17)
[2024-01-17] MEDS: amLODIPine Besylate 10 MG TABLET PO (08:28)
--- NOTE | 2024-01-17 09:43 | MHC.CM.PN ---
PT AWAITING LTC PLACEMENT PREVIOUS REFERRAL BROADCASTED 50 MILES WHICH RESULTED IN NO BED OFFERS REFERRAL NOW EXPANDED TO 100 MILES
--- NOTE | 2024-01-17 17:49 | PC.NURSE ---
Patient has had uneventful day thus far, offering no complaints to this RN. 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 Continue plan of care for case management follow up
[2024-01-17 17:54] VITALS: BP 170/84; PULSE 70; RESP 18; TEMP 36.4; O2SAT 100
--- NOTE | 2024-01-17 19:04 | PC.NURSE ---
patient appears to remain at rest at present respirations are even and unlabored patient appears in no distress
[2024-01-17] MEDS: Atorvastatin Calcium 10 MG TABLET 5 MG PO (20:16)
[2024-01-17] MEDS: Melatonin 3 MG TABLET 6 MG PO (20:16)
[2024-01-17] MEDS: traZODone HCL 50 MG TABLET PO (20:17)
[2024-01-18 04:16] VITALS: BP 143/88; PULSE 71; RESP 16; TEMP 36.6; O2SAT 98
[2024-01-18] MEDS: traZODone HCL 25 MG HALFTAB PO (04:26)
--- NOTE | 2024-01-18 07:15 | PC.NURSE ---
Pt eating breakfast.
[2024-01-18] MEDS: Cholecalciferol (Vitamin D3) 25 MCG TABLET PO (08:59)
[2024-01-18 09:00] VITALS: BP 143/88; PULSE 71
[2024-01-18] MEDS: Metoprolol Tartrate 25 MG TABLET PO ×2 (09:00→20:47)
[2024-01-18 09:01] VITALS: BP 143/88
[2024-01-18] MEDS: amLODIPine Besylate 10 MG TABLET PO (09:01)
[2024-01-18] MEDS: Cyanocobalamin (Vitamin B-12) 1,000 MCG TABLET 1000 MCG PO (09:01)
[2024-01-18] MEDS: Apixaban 5 MG TABLET PO ×2 (09:01→20:47)
[2024-01-18 16:58] VITALS: BP 124/66; PULSE 64; RESP 16; TEMP 36.2; O2SAT 98
--- NOTE | 2024-01-18 18:08 | PC.NURSE ---
pt ambulates throughout the milieu w/ a strong steady gait. no use of assistive devices needed. pt seems to be in no apparent distress. alternating between using patient phone/watching tv in bed/conversating w/ this data analyst report writer as well as tech at nurses station. respirations even/unlabored.
--- NOTE | 2024-01-18 18:55 | PC.NURSE ---
patient appears to remain at rest at present respirations are even and unlabored patient appears in no distress
[2024-01-18] MEDS: Sennosides/Docusate Sodium TABLET 1 TAB PO (20:47)
[2024-01-18] MEDS: Atorvastatin Calcium 10 MG TABLET 5 MG PO (20:48)
[2024-01-18] MEDS: Melatonin 3 MG TABLET 6 MG PO (20:48)
--- NOTE | 2024-01-19 01:32 | PC.NURSE ---
patient gently redirected about making phone calls at 0130. patient redirected but very insistent his [facility] is open/available at this time.
--- NOTE | 2024-01-19 03:19 | PC.NURSE ---
patient was seated awake in his room
[2024-01-19 06:17] VITALS: BP 142/65; PULSE 55; RESP 16; TEMP 36.3; O2SAT 99
--- NOTE | 2024-01-19 07:00 | PC.NURSE ---
Assumed care of patient at 0645. Patient is observed resting quietly in their bed. Breathing is even and unlabored with no signs of distress observed. Will continue plan of care.
[2024-01-19] MEDS: Cholecalciferol (Vitamin D3) 25 MCG TABLET PO (09:43)
[2024-01-19] MEDS: Apixaban 5 MG TABLET PO ×2 (09:43→20:11)
[2024-01-19] MEDS: Metoprolol Tartrate 25 MG TABLET PO ×2 (09:43→20:11)
[2024-01-19] MEDS: amLODIPine Besylate 10 MG TABLET PO (09:43)
[2024-01-19] MEDS: Cyanocobalamin (Vitamin B-12) 1,000 MCG TABLET 1000 MCG PO (09:43)
--- NOTE | 2024-01-19 11:23 | PC.NURSE ---
Nursing Note PT requesting to speak to MD about a possible callus or blister on the bottom of his left foot. He states that he has had it for about 5 days. It appears to be the size and shape of a cheerio. MD made aware.
[2024-01-19 14:00] VITALS: BP 113/71; PULSE 68; RESP 16; TEMP 36.8; O2SAT 98
[2024-01-19 20:07] VITALS: BP 129/80; PULSE 82; RESP 14; TEMP 36.3; O2SAT 98
[2024-01-19] MEDS: Melatonin 3 MG TABLET 6 MG PO (20:10)
[2024-01-19 20:11] VITALS: BP 129/80; PULSE 82
[2024-01-19] MEDS: Atorvastatin Calcium 10 MG TABLET 5 MG PO (20:11)
[2024-01-19] MEDS: Sennosides/Docusate Sodium TABLET 1 TAB PO (20:11)
[2024-01-19] MEDS: traZODone HCL 50 MG TABLET PO (20:11)
--- NOTE | 2024-01-20 05:29 | PC.NURSE ---
Patient was most part of the night, slept 3 hours, continuously asking to call mormon tried few time with no response, meds and meals complaint, no distress observed/reported, no behavior issues, disposition per CM is pending placement, VSS, will continue to monitor
[2024-01-20 05:31] VITALS: BP 152/128; PULSE 88; RESP 16; TEMP 36.2; O2SAT 99
--- NOTE | 2024-01-20 07:37 | PC.NURSE ---
Assumed care of patient at 0645, patient appears to be sleeping, respirations even and unlabored, no apparent distress. Continue plan of care for case management follow up
[2024-01-20] MEDS: Apixaban 5 MG TABLET PO ×2 (08:08→22:14)
[2024-01-20] MEDS: Cyanocobalamin (Vitamin B-12) 1,000 MCG TABLET 1000 MCG PO (08:08)
[2024-01-20] MEDS: Metoprolol Tartrate 25 MG TABLET PO ×2 (08:08→22:14)
[2024-01-20] MEDS: Cholecalciferol (Vitamin D3) 25 MCG TABLET PO (08:08)
[2024-01-20] MEDS: amLODIPine Besylate 10 MG TABLET PO (08:08)
--- NOTE | 2024-01-20 08:57 | MHC.CM.ED ---
Patient remains in ER BH Pod. No behaviors noted. No bed offers at this time. Referral broadcasted within 100 miles to all facilities that are contracted with [facility]. 183 referrals made. Continue to monitor for d/c needs.
[2024-01-20 14:00] VITALS: RESP 16
--- NOTE | 2024-01-20 17:43 | MHC.CM.ED ---
Addendum entered by Leann Branch 01/20/24 18:01: CM spoke with , Daly. Explained bed offers and lack of local facilities. Reviewed 4 facilites. requesting to call back in the morning with a decision. CM requested that she call [facility], because we don't want the facilities to give away his bed offer. Original Note: Four facilities have offered a bed-[facility] in [place], [facility] in [place], [facility] in [place] and [facility] in [place]. CM called /HCP Daly at [phone]. Message left to return call. CM will follow for discharge planning.
[2024-01-20 22:14] VITALS: BP 161/99; PULSE 85; RESP 18; TEMP 36.9; O2SAT 99
[2024-01-20] MEDS: Atorvastatin Calcium 10 MG TABLET 5 MG PO (22:14)
[2024-01-20] MEDS: Sennosides/Docusate Sodium TABLET 1 TAB PO (22:15)
[2024-01-20] MEDS: Melatonin 3 MG TABLET 6 MG PO (22:15)
[2024-01-20] MEDS: traZODone HCL 50 MG TABLET PO (22:15)
[2024-01-21 08:27] VITALS: BP 159/82; PULSE 72; RESP 12; TEMP 36.6; O2SAT 98
[2024-01-21 08:29] VITALS: BP 159/82
[2024-01-21] MEDS: amLODIPine Besylate 10 MG TABLET PO (08:29)
[2024-01-21] MEDS: Apixaban 5 MG TABLET PO ×2 (08:30→20:12)
[2024-01-21] MEDS: Metoprolol Tartrate 25 MG TABLET PO ×2 (08:30→20:12)
[2024-01-21] MEDS: Cyanocobalamin (Vitamin B-12) 1,000 MCG TABLET 1000 MCG PO (08:30)
[2024-01-21] MEDS: Cholecalciferol (Vitamin D3) 25 MCG TABLET PO (08:30)
--- NOTE | 2024-01-21 12:39 | MHC.EDTECH ---
belongings in locker 2
--- NOTE | 2024-01-21 12:39 | MHC.CM.ED ---
Patient remains in ER BH Pod. Spoke with patient's /HCP, Daly via telephone multiple times today. Patient is concerned about distance of facilities and originally wanted to deny all bed offers. T/W explained Medicare regulations of bed offers within 100 miles. Also explained if [facility] did not accept a bed that was offered, patient would have to go home. Daly requested patient be admitted to the hospital. T/W explained there was no medical necessity for patient to be admitted. Explained insurance would not authorize it. Daly requested patient be admitted to the hospital under private pay. T/W explained private pay cost of hospital stay is about $1000 per night and hospital would require a check or credit card up front. Daly is going to speak with her geographic information systems director and is requesting to have until tomorrow to make a decision. T/W explained final decision would need to be made by tomorrow Sunday 01/21 at 10am. Daly agreeable and verbalized understanding. Continue to monitor for d/c needs.
--- NOTE | 2024-01-21 19:05 | PC.NURSE ---
patient appears to remain at rest at present respirations are even and unlabored patient appears in no distress
[2024-01-21 20:10] VITALS: BP 170/92; PULSE 79; RESP 18; TEMP 36.4; O2SAT 100
[2024-01-21] MEDS: Melatonin 3 MG TABLET 6 MG PO (20:10)
[2024-01-21] MEDS: traZODone HCL 50 MG TABLET PO (20:12)
[2024-01-21] MEDS: Atorvastatin Calcium 10 MG TABLET 5 MG PO (20:12)
[2024-01-21] MEDS: Sennosides/Docusate Sodium TABLET 1 TAB PO (20:12)
[2024-01-22 06:27] VITALS: BP 140/79; PULSE 71; TEMP 36.1; O2SAT 98
[2024-01-22] MEDS: Cholecalciferol (Vitamin D3) 25 MCG TABLET PO (08:51)
[2024-01-22] MEDS: Metoprolol Tartrate 25 MG TABLET PO ×2 (08:51→20:28)
[2024-01-22] MEDS: Cyanocobalamin (Vitamin B-12) 1,000 MCG TABLET 1000 MCG PO (08:52)
[2024-01-22] MEDS: Apixaban 5 MG TABLET PO ×2 (08:52→20:28)
[2024-01-22] MEDS: amLODIPine Besylate 10 MG TABLET PO (08:52)
[2024-01-22 08:55] VITALS: BP 136/74; PULSE 65; RESP 16; TEMP 36.9; O2SAT 98
--- NOTE | 2024-01-22 10:14 | MHC.CM.ED ---
Addendum entered by Xiomy Chowdhury 01/22/24 14:08: Received notification from [facility] that they are not contracted with [facility] and [facility] would not authorize out of network auth. T/W spoke with Wendy at [facility]. Per Wendy, [facility] will authorize out of network auth. Jess from [facility] made aware and asked to for out of network auth. Original Note: Received telephone call from patient's /HCP, Daly. [facility] is 1st choice. [facility] has been asked to obtain insurance auth. Continue to monitor for d/c needs.
--- NOTE | 2024-01-22 12:26 | PC.NURSE ---
continues to ambulate independently to the bathroom. resting in bed in room.
[2024-01-22] MEDS: Acetaminophen 325 MG TABLET 975 MG PO (17:15)
[2024-01-22 18:07] VITALS: BP 160/84; PULSE 74; RESP 16; TEMP 36.5; O2SAT 98
--- NOTE | 2024-01-22 19:00 | PC.NURSE ---
patient appears to remain at rest at present respirations are even and unlabored patient appeared in no distress
[2024-01-22] MEDS: Atorvastatin Calcium 10 MG TABLET 5 MG PO (20:27)
[2024-01-22] MEDS: Melatonin 3 MG TABLET 6 MG PO (20:27)
[2024-01-22] MEDS: traZODone HCL 50 MG TABLET PO (20:28)
[2024-01-22] MEDS: Sennosides/Docusate Sodium TABLET 1 TAB PO (20:28)
[2024-01-23 06:12] VITALS: BP 136/85; PULSE 73; RESP 18; TEMP 36.9; O2SAT 96
[2024-01-23] MEDS: amLODIPine Besylate 10 MG TABLET PO (09:14)
[2024-01-23] MEDS: Metoprolol Tartrate 25 MG TABLET PO ×2 (09:14→20:40)
[2024-01-23] MEDS: Cyanocobalamin (Vitamin B-12) 1,000 MCG TABLET 1000 MCG PO (09:14)
[2024-01-23] MEDS: Cholecalciferol (Vitamin D3) 25 MCG TABLET PO (09:14)
[2024-01-23] MEDS: Apixaban 5 MG TABLET PO ×2 (09:14→20:40)
--- NOTE | 2024-01-23 09:28 | MHC.CM.ED ---
Addendum entered by Xiomy Chowdhury 01/23/24 12:25: Consent forms for [facility] [place] sent to T/W for to sign. Daly aware and will notify CM when she is on-site visiting patient. Original Note: Patient remains in Pod. Waiting for insurance auth for [facility]. Received telephone call from patient's , Daly. While Daly was visiting patient last night, patient complained of left foot pain due to blisters. Daly is now requesting provider look at this foot. Dr Zee notified. Continue to monitor for d/c needs.
[2024-01-23 15:31] VITALS: BP 121/69; PULSE 61; RESP 18; TEMP 36.8; O2SAT 98
--- NOTE | 2024-01-23 20:00 | PC.NURSE ---
Assumed care of patient at 1900, patient awake, sitting in bed watching TV. Appears to be in no apparent distress at this time
[2024-01-23] MEDS: Melatonin 3 MG TABLET 6 MG PO (20:34)
[2024-01-23] MEDS: Atorvastatin Calcium 10 MG TABLET 5 MG PO (20:34)
[2024-01-23] MEDS: traZODone HCL 50 MG TABLET PO (20:40)
[2024-01-23] MEDS: Sennosides/Docusate Sodium TABLET 1 TAB PO (20:40)
--- NOTE | 2024-01-24 06:23 | PC.NURSE ---
Patient slept through the night, meds and meals complaint, no distress observed/reported, denied SI/HI/AVH, VSS, disposition pending case management placement, will continue to monitor
[2024-01-24 06:49] VITALS: BP 117/72; PULSE 71; TEMP 37; O2SAT 99
[2024-01-24 09:07] VITALS: BP 117/74; PULSE 71
[2024-01-24] MEDS: Cyanocobalamin (Vitamin B-12) 1,000 MCG TABLET 1000 MCG PO (09:07)
[2024-01-24] MEDS: Apixaban 5 MG TABLET PO ×2 (09:07→20:15)
[2024-01-24] MEDS: Metoprolol Tartrate 25 MG TABLET PO ×2 (09:07→20:15)
[2024-01-24] MEDS: amLODIPine Besylate 10 MG TABLET PO (09:07)
[2024-01-24] MEDS: Cholecalciferol (Vitamin D3) 25 MCG TABLET PO (09:07)
[2024-01-24 15:21] VITALS: BP 164/78; PULSE 78; RESP 16; TEMP 36.9; O2SAT 97
[2024-01-24] MEDS: Atorvastatin Calcium 10 MG TABLET 5 MG PO (20:16)
[2024-01-24] MEDS: Sennosides/Docusate Sodium TABLET 1 TAB PO (20:16)
[2024-01-24] MEDS: Melatonin 3 MG TABLET 6 MG PO (20:16)
[2024-01-24] MEDS: traZODone HCL 50 MG TABLET PO (20:16)
[2024-01-25 05:51] VITALS: BP 142/84; PULSE 85; TEMP 37.1; O2SAT 98
--- NOTE | 2024-01-25 07:06 | PC.NURSE ---
Assumed care of patient at 0645, patient appears to be sleeping, respirations even and unlabored. Continue plan of care for case management follow up
[2024-01-25 08:16] VITALS: BP 142/84
[2024-01-25] MEDS: Metoprolol Tartrate 25 MG TABLET PO ×2 (08:16→20:00)
[2024-01-25] MEDS: Cholecalciferol (Vitamin D3) 25 MCG TABLET PO (08:16)
[2024-01-25] MEDS: amLODIPine Besylate 10 MG TABLET PO (08:16)
[2024-01-25] MEDS: Apixaban 5 MG TABLET PO ×2 (08:16→20:00)
[2024-01-25] MEDS: Cyanocobalamin (Vitamin B-12) 1,000 MCG TABLET 1000 MCG PO (08:16)
[2024-01-25 20:00] VITALS: BP 145/84; PULSE 84; RESP 18; TEMP 36.6; O2SAT 100
[2024-01-25] MEDS: Sennosides/Docusate Sodium TABLET 1 TAB PO (20:00)
[2024-01-25] MEDS: Atorvastatin Calcium 10 MG TABLET 5 MG PO (20:01)
[2024-01-25] MEDS: traZODone HCL 50 MG TABLET PO (20:01)
[2024-01-25] MEDS: Melatonin 3 MG TABLET 6 MG PO (20:01)
[2024-01-26 06:47] VITALS: BP 141/82; PULSE 66; RESP 17; TEMP 36.3; O2SAT 99
--- NOTE | 2024-01-26 07:07 | PC.NURSE ---
Assumed care of patient at 0645, patient appears to be in no apparent distress this am, sitting up eating breakfast. Continue plan of care for case management follow up
[2024-01-26] MEDS: amLODIPine Besylate 10 MG TABLET PO (08:12)
[2024-01-26] MEDS: Metoprolol Tartrate 25 MG TABLET PO ×2 (08:12→20:02)
[2024-01-26] MEDS: Cholecalciferol (Vitamin D3) 25 MCG TABLET PO (08:12)
[2024-01-26] MEDS: Cyanocobalamin (Vitamin B-12) 1,000 MCG TABLET 1000 MCG PO (08:13)
[2024-01-26] MEDS: Apixaban 5 MG TABLET PO ×2 (08:13→20:02)
--- NOTE | 2024-01-26 19:02 | PC.NURSE ---
patient appears to remain at rest at present respirations are even and unlabored patient appears in no distress
[2024-01-26 19:42] VITALS: BP 137/80; PULSE 82; RESP 18; TEMP 36.4; O2SAT 97
[2024-01-26] MEDS: Melatonin 3 MG TABLET 6 MG PO (20:02)
[2024-01-26] MEDS: Atorvastatin Calcium 10 MG TABLET 5 MG PO (20:02)
[2024-01-26] MEDS: traZODone HCL 50 MG TABLET PO (20:02)
[2024-01-26] MEDS: Sennosides/Docusate Sodium TABLET 1 TAB PO (20:02)
[2024-01-27 06:12] VITALS: BP 145/79; PULSE 81; TEMP 36.1; O2SAT 99
--- NOTE | 2024-01-27 09:19 | MHC.CM.ED ---
Addendum entered by Xiomy Chowdhury 01/27/24 12:28: [facility] has received consents. Still waiting for auth. Original Note: Patient remains in ER BH pod. Left message for Jess liaison of [facility] to see if they have obtained auth. Continue to monitor for d/c needs.
[2024-01-27 10:03] VITALS: BP 141/79; PULSE 68; RESP 18; O2SAT 99
[2024-01-27 10:05] VITALS: BP 141/79; PULSE 68
[2024-01-27] MEDS: Metoprolol Tartrate 25 MG TABLET PO ×2 (10:05→20:16)
[2024-01-27 10:06] VITALS: BP 141/79
[2024-01-27] MEDS: Cholecalciferol (Vitamin D3) 25 MCG TABLET PO (10:06)
[2024-01-27] MEDS: Cyanocobalamin (Vitamin B-12) 1,000 MCG TABLET 1000 MCG PO (10:06)
[2024-01-27] MEDS: amLODIPine Besylate 10 MG TABLET PO (10:06)
[2024-01-27] MEDS: Apixaban 5 MG TABLET PO ×2 (10:07→20:16)
--- NOTE | 2024-01-27 10:13 | PC.NURSE ---
Pt alert and answering questions, calm and cooperative. Denies any pain or complaints at this time. Took meds with no issues.
--- NOTE | 2024-01-27 15:43 | MHC.CM.ED ---
Patient remains in ER BH Pod. Insurance auth has been obtained. Per Katlyn at [facility], patient can leave tomorrow 01/27 at 10am. Anusha PRINCE booked. Patient, Pallavi BLANCO and Dr Saadia tinoco. Attempted to notify /HCP, Daly via telephone at [phone]. Left voicemail with d/c info. Continue to monitor for d/c needs.
[2024-01-27 16:58] VITALS: BP 146/70; PULSE 72; RESP 16; TEMP 36.9; O2SAT 97
--- NOTE | 2024-01-27 18:53 | PC.NURSE ---
patient appears to remain at rest presently respirations are even and unlabored patient appears in no distress
[2024-01-27] MEDS: traZODone HCL 50 MG TABLET PO (20:16)
[2024-01-27] MEDS: Atorvastatin Calcium 10 MG TABLET 5 MG PO (20:16)
[2024-01-27] MEDS: Sennosides/Docusate Sodium TABLET 1 TAB PO (20:16)
[2024-01-27] MEDS: Melatonin 3 MG TABLET 6 MG PO (20:17)
--- NOTE | 2024-01-28 07:04 | PC.NURSE ---
Assumed care of patient at 0645. Patient is observed resting in their bed. No signs of distress observed. Will continue plan of care.
[2024-01-28] MEDS: amLODIPine Besylate 10 MG TABLET PO (08:50)
[2024-01-28] MEDS: Cholecalciferol (Vitamin D3) 25 MCG TABLET PO (08:50)
[2024-01-28] MEDS: Cyanocobalamin (Vitamin B-12) 1,000 MCG TABLET 1000 MCG PO (08:51)
[2024-01-28] MEDS: Apixaban 5 MG TABLET PO (08:51)
[2024-01-28] MEDS: Metoprolol Tartrate 25 MG TABLET PO (08:51)
[2024-01-28 10:08] VITALS: BP 146/70; PULSE 72; RESP 16; TEMP 36.9; O2SAT 97
== END 2024-01-28 10:11 | disposition skilled nursing facility (03) ==
PROVIDERS: Physician Assistant; Emergency Provider Emergency Medicine Emergency Medical Services; PCP Internal Medicine
DX: F03.911 Unspecified dementia, unspecified severity, with agitation (principal); I13.0 Hypertensive heart and chronic kidney disease with heart failure and stage 1 through stage 4 chronic kidney disease, or unspecified chronic kidney disease; N18.9 Chronic kidney disease, unspecified; I50.9 Heart failure, unspecified; E78.5 Hyperlipidemia, unspecified; F43.10 Post-traumatic stress disorder, unspecified; Z86.711 Personal history of pulmonary embolism; Z11.52 Encounter for screening for COVID-19; Z79.01 Long term (current) use of anticoagulants; Z79.02 Long term (current) use of antithrombotics/antiplatelets; Z79.899 Other long term (current) drug therapy
CPT/HCPCS: 36415; 80053; 80143; 80179; 80307; 81001; 81003; 85025; 87635; 97161; 99285; S9485